=== PATIENT | female | born 1970 | race Hispanic/Latino ===

== ENCOUNTER 2018-11-02 17:43 | Emergency (ER) | payer OTHER ==
[2018-11-02 17:51] VITALS: BMI 51.0
[2018-11-02 17:56] VITALS: TEMP 98.6
[2018-11-02] MEDS ORDERED: Sodium Chloride 0.9% 1,000 ML IV STA (18:31)
--- NOTE | 2018-11-02 18:46 | ED PDOC ---
Arrival/HPI - General Chief Complaint: Abdominal Pain Time Seen by Provider: 11/02/18 17:53 Historian: Patient - History of Present Illness Narrative History of Present Illness (Text): 11/02/18 19:29 41 y/o female with PMH of obesity, gastric bypass, diverticulitis, GERD, and cholecystectomy presents to the ED c/o abdominal pain x 4 days. Pain is sharp, constant, worse in right and left lower quadrants. Associated mild constipation, last BM just prior to arrival, brown, hard stool. Has been taking Alieve for pain with some relief. Pt states that she spoke with her GI doctor, Dr. Milan 3 days ago who recommended she come to ED to r/o diverticulitis. Has been exercising more over the last 6 weeks to lose weight. Denies fever, chills, nausea, vomiting, diarrhea, urinary symptoms, vaginal bleeding/discharge, back pain, chest pain, SOB, decreased appetite, or any other associated symptoms. PMD: GI: Dr. Milan Past Medical History - Provider Review Nursing Documentation Reviewed: Yes Primary Care Provider: Jeffrey Flores - Infectious Disease Hx of Infectious Diseases: None - Tetanus Immunization Tetanus Immunization: Unknown - Cardiac Hx Pacemaker: No - Neurological Hx Paralysis: No - Hematological/Oncological Hx Blood Transfusions: No Hx Blood Transfusion Reaction: No - Musculoskeletal/Rheumatological Hx Musculoskeletal Disorders: Yes - Gastrointestinal Hx Diverticulitis: Yes Hx Gastroesophageal Reflux: Yes Other/Comment: + Lap band - Psychiatric Hx Emotional Abuse: No Hx Physical Abuse: No Hx Substance Use: No - Surgical History Hx Section: Yes (x 2) Hx Cholecystectomy: Yes Other/Comment: Lap Band - Anesthesia Hx Anesthesia: Yes Hx Anesthesia Reactions: No Hx Malignant Hyperthermia: No - Suicidal Assessment Feels Threatened In Home Enviroment: No Family/Social History - Physician Review Nursing Documentation Reviewed: Yes Family/Social History: No Known Family HX Smoking Status: Never Smoked Hx Alcohol Use: Yes Frequency of alcohol use: Socially Hx Substance Use: No Hx Substance Use Treatment: No Allergies/Home Meds Allergies/Adverse Reactions: Allergies No Known Allergies Allergy (Verified 11/02/18 17:50) Home Medications: Home Meds Medication Instructions Recorded Confirmed Ranitidine HCl [Zantac] 0 mg PO DAILY 05/23/16 11/02/18 Review of Systems - Review of Systems Constitutional: Normal. absent: Fatigue, Fevers Eyes: Normal. absent: Vision Changes ENT: Normal. absent: Sore Throat, Sinus Congestion Respiratory: Normal. absent: SOB, Cough Cardiovascular: Normal. absent: Chest Pain, Palpitations, Syncope Gastrointestinal: Abdominal Pain, Constipation. absent: Diarrhea, Vomiting, Appetite Changes, Hematochezia, Hematemesis Genitourinary Female: Normal. absent: Dysuria, Frequency, Vaginal Bleeding, Vaginal Discharge Musculoskeletal: Normal. absent: Back Pain, Neck Pain Skin: Normal. absent: Rash Neurological: Normal. absent: Headache, Dizziness Physical Exam Vital Signs Temp Pulse Resp BP Pulse Ox 11/02/18 17:55 98.6 F 96 H 18 114/79 95 Temperature: Afebrile Blood Pressure: Normal Pulse: Regular Respiratory Rate: Normal Appearance: Positive for: Well-Appearing, Non-Toxic, Comfortable Pain Distress: None Mental Status: Positive for: Alert and Oriented X 3 - Systems Exam Head: Present: Atraumatic, Normocephalic Pupils: Present: PERRL Extroacular Muscles: Present: EOMI Conjunctiva: Present: Normal Mouth: Present: Moist Mucous Membranes Neck: Present: Normal Range of Motion. No: Meningeal Signs Respiratory/Chest: Present: Clear to Auscultation, Good Air Exchange. No: Respiratory Distress, Accessory Muscle Use Cardiovascular: Present: Regular Rate and Rhythm, Normal S1, S2, Peripheal Pulses Present Abdomen: Present: Tenderness (RLQ, LLQ), Normal Bowel Sounds, Other (obese). No: Distention, Peritoneal Signs, Rebound, Guarding Back: Present: Normal Inspection. No: CVA Tenderness Upper Extremity: Present: Normal Inspection, Normal ROM, NORMAL PULSES, Ne urovascularly Intact, Capillary Refill < 2s. No: Cyanosis, Edema, Temperature Abnormalties Lower Extremity: Present: Normal Inspection, NORMAL PULSES, Normal ROM, Neurovascularly Intact, Capillary Refill < 2 s. No: Edema, Temperature Abnormalties Neurological: Present: GCS=15, CN II-XII Intact, Speech Normal, Motor Func Grossly Intact, Normal Sensory Function, Gait Normal Skin: Present: Warm, Dry, Normal Color. No: Rashes Psychiatric: Present: Alert, Oriented x 3, Normal Insight, Normal Concentration, Normal Affect, Normal Mood Medical Decision Making ED Course and Treatment: Initial Plan * CBC, CMP * Lipase * Troponin * Coags * UA * EKG * CXR * CT Abd/Pelvis with IV contrast * IVF * Pepcid 19:46 Bloodwork reviewed, unremarkable. No anemia, leukocytosis, or electrolyte abnormalities. EKG shows no acute ischemic change, troponin negative. 20:00 Patient care endorsed to LIVIA Miller pending CT scan, CXR, urinalysis, reassessment, and disposition. - Lab Interpretations Lab Results: 11/02/18 19:18 11/02/18 19:18 Lab Results 11/02/18 19:18: Sodium 141, Potassium 4.1, Chloride 100, Carbon Dioxide 32, Anion Gap 13, BUN 18, Creatinine 0.7, Est GFR ( Amer) > 60, Est GFR (Non- Af Amer) > 60, Random Glucose 89, Calcium 9.1, Total Bilirubin 0.3, AST 24, ALT 19, Alkaline Phosphatase 74, Troponin I < 0.01, Total Protein 7.9, Albumin 4.0, Globulin 3.9, Albumin/Globulin Ratio 1.0 L, Lipase 43 11/02/18 19:18: PT 13.2 H, INR 1.19, APTT 35.0 11/02/18 19:18: WBC 8.3, RBC 4.59, Hgb 12.2, Hct 38.2, MCV 83.2, MCH 26.6, MCHC 31.9, RDW 14.7 H, Plt Count 214, MPV 10.8, Neut % (Auto) 70.5 H, Lymph % (Auto) 20.4 L, Alfalfa % (Auto) 6.2 H, Eos % (Auto) 2.7, Baso % (Auto) 0.2, Lymph # (Auto) 1.7, Alfalfa # (Auto) 0.5, Eos # (Auto) 0.2, Baso # (Auto) 0.02, Absolute Neuts (auto) 5.82 I have reviewed the lab results: Yes Interpretation: All labs normal - RAD Interpretation Radiology Orders: 11/02/18 18:30 CHEST PORTABLE [RAD] Stat 11/02/18 18:31 ABD & PELVIS IV CONTRAST ONLY [CT] Stat - EKG Interpretation EKG Interpretation (Text): 11/02/18 19:48 Rate 92; NSR; Normal intervals; No STEMI, nonspecific ST/T wave changes Interpreted by ED Physician: Yes Type: 12 lead EKG - Medication Orders Current Medication Orders: Sodium Chloride (Sodium Chloride 0.9%) 1,000 mls @ 999 mls/hr IV .Q1H1M STA Stop: 11/02/18 19:31 Discontinued Medications Famotidine (Pepcid) 20 mg IVP STAT STA Stop: 11/02/18 18:31 Ketorolac Tromethamine (Toradol) 30 mg IVP STAT STA Stop: 11/02/18 18:31 - Transfer of Care Patient signed out to Dr:: LIVIA Miller Pending Labs:: UA Pending Radiology Studies:: CXR, CT Abd/Pelvis Other: Reassessment and Disposition Disposition/Present on Arrival - Present on Arrival Any Indicators Present on Arrival: No History of DVT/PE: No History of Uncontrolled Diabetes: No Urinary Catheter: No History of Decub. Ulcer: No History Surgical Site Infection Following: Orthopedic Procedures, None - Disposition Have Diagnosis and Disposition been Completed?: No Diagnosis: Abdominal pain Disposition Time: 20:00 Patient Problems: Current Active Problems Problem Status Onset Abdominal pain Acute Condition: STABLE Referrals: Jeffrey Flores MD [Primary Care Provider] - Follow up with primary Forms: [employer] (Croatian)
[2018-11-02 19:28] LABS: BASO # 0.02 K/mm3 (0.0-2.0); BASO % 0.2 % (0.0-3.0); EOS # 0.2 (0.0-0.7); EOS % 2.7 % (1.5-5.0); HEMOGLOBIN 12.2 g/dL (12.0-16.0); LYMPH # 1.7 (1.2-3.4); LYMPH % 20.4 % (22.0-35.0); MEAN CELL VOLUME 83.2 fl (80.0-105.0); MEAN CORPUSCULAR HEMOGLOBIN 26.6 pg (25.0-35.0); MEAN CORPUSCULAR HGB CONC 31.9 g/dl (31.0-37.0); MEAN PLATELET VOLUME 10.8 fl (7.0-11.0); MONO # 0.5 (0.1-0.6); MONO % 6.2 % (1.0-6.0); RBC 4.59 10^6/uL (3.5-6.1); RED CELL DISTRIBUTION WIDTH 14.7 % (11.5-14.5); WHITE BLOOD COUNT 8.3 10^3/uL (4.5-11.0)
[2018-11-02 19:35] LABS: ALT/SGPT 19 U/L (7-56); AST/SGOT 24 U/L (14-36); BLOOD UREA NITROGEN 18 mg/dL (7-21); CALCIUM 9.1 mg/dL (8.4-10.5); GFR NON-AFRICAN AMERICAN > 60; LIPASE 43 U/L (23-300)
[2018-11-02 19:36] LABS: INR 1.19; PROTHROMBIN TIME 13.2 SECONDS (9.4-12.5)
[2018-11-02 19:47] LABS: TROPONIN I < 0.01 ng/mL
[2018-11-02] MEDS ORDERED: metroNIDAZOLE IV 500 mg/100 ml 500 MG/100 ML BAG IVPB STA (21:50)
[2018-11-02] MEDS ORDERED: Ciprofloxacin 400mg/200ml D5W 400 MG/200 ML BAG IVPB STA (21:50)
--- NOTE | 2018-11-02 21:52 | ED PDOC ---
Physical Exam Vital Signs Temp Pulse Resp BP Pulse Ox 11/02/18 17:55 98.6 F 96 H 18 114/79 95 Medical Decision Making ED Course and Treatment: 11/02/18 20:00 Patient signed out to me by LIVIA Ponce, pending CT scan, CXR, urinalysis, reassessment, and disposition. CXR : NAD. UA not done, patient refusing UA, unable to provide a urine sample. 11/02/18 21:50 CT abdomen and pelvis reviewed by radiologist, shows: 1. Diverticulosis coli of the colon with a segment of acute diverticulitis involving the sigmoid colon. No complication detected. 2. Evidence of mild diffuse enteritis. 3. A gastric lap band apparatus remains unchanged in position. 4. Hepatomegaly. 5. Status post cholecystectomy. On reevaluation, patient reports improvement of symptoms, denies any abdominal pain, nausea, diarrhea. On exam, patient remains awake, alert, oriented x3, in no acute distress, she is sitting comfortably, patient is smiling, is cheerful, and in good spirits, abdomen soft and nontender, with no guarding or rebound. Diagnostic results discussed with the patient in great detail. Diagnosis of diverticulitis discussed with the patient. Cipro IV and Flagyl IV ordered. Patient is refusing IV administration of above antibiotics, states that "it will take too long," patient asked to reconsider, however she continues to refused. PO cipro and flagyl ordered instead. 11/02/18 21:55 Case d/w Dr. Milan, recommends 48 hours liquid diet, Rx for cipro and flagyl, states that the patient can f/u in his office in 1-2 days for re-evaluation. Treatment plan discussed with the patient. She agrees with outpatient follow-up with Dr. Milan. She states that she would prefer to go home and that she intends to follow-up with Dr. Milan. - Lab Interpretations Lab Results: PT 13.2 SECONDS (9.4-12.5) H 11/02/18 19:18 INR 1.19 11/02/18 19:18 APTT 35.0 Seconds (26.9-38.3) 11/02/18 19:18 Troponin I < 0.01 ng/mL 11/02/18 19:18 Total Bilirubin 0.3 mg/dL (0.2-1.3) 11/02/18 19:18 AST 24 U/L (14-36) 11/02/18 19:18 ALT 19 U/L (7-56) 11/02/18 19:18 Alkaline Phosphatase 74 U/L (38-126) 11/02/18 19:18 Total Protein 7.9 g/dL (5.8-8.3) 11/02/18 19:18 Albumin 4.0 g/dL (3.0-4.8) 11/02/18 19:18 Globulin 3.9 gm/dL 11/02/18 19:18 Albumin/Globulin Ratio 1.0 (1.1-1.8) L 11/02/18 19:18 Lipase 43 U/L (23-300) 11/02/18 19:18 Beta HCG, Quant < 2.39 mIU/mL (0-6.15) 11/02/18 19:15 - RAD Interpretation Radiology Orders: 11/02/18 18:30 CHEST PORTABLE [RAD] Stat 11/02/18 18:31 ABD & PELVIS IV CONTRAST ONLY [CT] Stat - Medication Orders Current Medication Orders: Discontinued Medications Famotidine (Pepcid) 20 mg IVP STAT STA Stop: 11/02/18 18:31 Last Admin: 11/02/18 19:14 Dose: 20 mg IVP Administration Document 11/02/18 19:14 BB (Rec: 11/02/18 19:14 [place] [facility] [id number] Charges for Administration # of IVP Administrations 1 Sodium Chloride (Sodium Chloride 0.9%) 1,000 mls @ 999 mls/hr IV .Q1H1M STA Stop: 11/02/18 19:31 Last Admin: 11/02/18 19:13 Dose: 999 mls/hr eMAR Start Stop Document 11/02/18 19:13 BB (Rec: 11/02/18 19:13 BB [id number] Intravenous Solution Start Date 11/02/18 Start Time 19:13 Ketorolac Tromethamine (Toradol) 30 mg IVP STAT STA Stop: 11/02/18 18:31 Last Admin: 11/02/18 19:13 Dose: 30 mg MAR Pain Assessment Document 11/02/18 19:13 BB (Rec: 11/02/18 19:14 BB [id number] Pain Reassessment Is this a pain reassessment? No Sleep Is patient sleeping during reassessment? No Presence of Pain Presence of Pain Yes Pain Scale Used Protocol: PSCALES Pain Scale Used Numeric Location Left, Right or Bilateral Left Upper or Lower Lower Pain Location Body Site Abdomen Description Intensity of Pain at present 8 Pain Behavior Grasping Site Rubbing Site Perspiration Facial Grimacing IVP Administration Document 11/02/18 19:13 BB (Rec: 11/02/18 19:14 BB [id number] Charges for Administration # of IVP Administrations 1 - PA / COMPUTER LABORATORY TECHNICIAN / Resident Statement MD/DO has reviewed & agrees with the documentation as recorded. MD/DO has examined the patient and agrees with the treatment plan. - Scribe Statement The provider has reviewed the documentation as recorded by the [facility]igue[employer] Beltrán All medical record entries made by the [employer] were at my direction and pe rsonally dictated by me. I have reviewed the chart and agree that the record accurately reflects my personal performance of the history, physical exam, medical decision making, and the department course for this patient. I have also personally directed, reviewed, and agree with the discharge instructions and disposition. Disposition/Present on Arrival - Present on Arrival Any Indicators Present on Arrival: No History of DVT/PE: No History of Uncontrolled Diabetes: No Urinary Catheter: No History of Decub. Ulcer: No History Surgical Site Infection Following: Orthopedic Procedures, None - Disposition Have Diagnosis and Disposition been Completed?: Yes Diagnosis: Abdominal pain, Diverticulitis Disposition: HOME/ ROUTINE Disposition Time: 22:00 Patient Plan: Discharge Patient Problems: Current Active Problems Problem Status Onset Abdominal pain Acute Diverticulitis Acute Condition: STABLE Discharge Instructions (ExitCare): Acute Abdomen (Belly Pain), Diverticulitis Additional Instructions: Thank you for letting us take care of you today. You were treated for abdominal pain, diverticulitis. The emergency medical care you received today was directed at your acute symptoms. If you were prescribed any medication, please fill it and take as directed. It may take several days for your symptoms to resolve. Return to the Emergency Department if your symptoms worsen, do not improve, or if you have any other problems. Please contact your GI doctor in 2 days for re-evaluation and follow up. Bring any paperwork you were given at discharge with you along with any medications you are taking to your follow up visit. Our treatment cannot replace ongoing medical care by a primary care provider (PCP) outside of the emergency department. Thank you for allowing the [facility] team to be part of your care today. If you had a CT scan: A Radiologist will review the ED reading if any change in treatment is needed we will contact you. Prescriptions: Ciprofloxacin [Cipro] 500 mg PO BID #20 tab Metronidazole [Flagyl] 500 mg PO TID #30 tab Referrals: Jeffrey Flores MD [Primary Care Provider] - Follow up with primary Forms: [employer] (Urdu), WORK NOTE
[2018-11-02 22:28] VITALS: BP 125/85; PULSE 75; RESP 16; O2SAT 100
--- NOTE | 2018-11-03 07:07 | CARD ---
APPROVED REPORT Date of service: 11/02/2018 EKG Measurement Heart [id number] <Conclusion> Normal sinus rhythm Cannot rule out Anterior infarct, age undetermined Abnormal ECG
--- NOTE | 2018-11-03 08:04 | CT ---
Date of service: 11/02/2018 PROCEDURE: CT Abdomen and Pelvis with contrast HISTORY: Lower abdomen and side pain. COMPARISON: 07/17/2012 and 05/23/[address] scans abdomen and pelvis. TECHNIQUE: Intravenous contrast dose: 150 cc Omnipaque 350. Radiation dose: Total exam DLP = 1321.57 mGy-cm. This CT exam was performed using one or more of the following dose reduction techniques: Automated exposure control, adjustment of the mA and/or kV according to patient size, and/or use of iterative reconstruction technique. FINDINGS: LOWER THORAX: Unremarkable. LIVER: Hepatic steatosis. No focal masses. No intrahepatic bile duct dilatation or perihepatic ascites. GALLBLADDER AND BILE DUCTS: Unremarkable. PANCREAS: Unremarkable. No gross lesion or ductal dilatation. SPLEEN: Unremarkable. ADRENALS: Unremarkable. No mass. KIDNEYS AND URETERS: Unremarkable. No hydronephrosis. No solid mass. VASCULATURE: Unremarkable. No aortic aneurysm. No atherosclerotic calcification or mural plaque present. BOWEL: Diverticulosis. Focal acute diverticulitis emanating from the sigmoid colon. Extensive diverticulosis throughout the remainder of the colon. Relevant surgical history: Findings related prior lap band surgery left upper quadrant. APPENDIX: Normal appendix. PERITONEUM: Unremarkable. No free fluid. No free air. LYMPH NODES: Unremarkable. No enlarged lymph nodes. BLADDER: Unremarkable. REPRODUCTIVE: Unremarkable. BONES: No acute fracture. OTHER FINDINGS: Fat containing periumbilical hernia. IMPRESSION: Acute short-segment sigmoid diverticulitis. No associated drainable collection, free fluid, free air or other pathologic process noted. Additional benign and/or incidental findings described above. These are stable. Concordant results (preliminary interpretation) provided by [employer]. Procedure Completed: 20:37. Preliminary Report: Interpreted and electronically signed: 21:10. Final Interpretation: 07:58. November 03, 2018.
--- NOTE | 2018-11-03 08:58 | RAD ---
Date of service: 11/02/2018 HISTORY: abd pain COMPARISON: No prior. FINDINGS: LUNGS: No active pulmonary disease. PLEURA: No significant pleural effusion identified, no pneumothorax apparent. CARDIOVASCULAR: No atherosclerotic calcification present Normal. OSSEOUS STRUCTURES: No significant abnormalities. VISUALIZED UPPER ABDOMEN: Normal. OTHER FINDINGS: None. IMPRESSION: No active disease.
== END 2018-11-02 22:25 | disposition home or self-care (01) ==
LOC: ED 17:43
DX: K57.92 Diverticulitis of intestine, part unspecified, without perforation or abscess without bleeding (principal)
CPT/HCPCS: 71045; 74177; 80053; 83690; 84484; 84702; 85025; 85610; 85730; 93005; 96374; 96375; 99285; J1885; J7030; Q9967